=== PATIENT | male | born 1950 | race Caucasian/White ===

== ENCOUNTER 2019-05-28 11:44 | Day surgery (SDC) | payer OTHER ==
[~2019-05-28 11:44] MED LIST: Buffered Lidocaine 1% SYRIN* 1 ML/SYRINGE INTRADERM ONE
[2019-05-28] MEDS ORDERED: Midazolam* 1 MG/ML 2 ML VIAL (2 MG) ONE ×2 (12:34→12:56)
[2019-05-28] MEDS ORDERED: Neomycin/Polymy/Dex OPHTH.OIN* 3.5 GM ONE (13:40)
[2019-05-28] MEDS ORDERED: Cyclopentolate 1% OPTH.SOL* 2 ML BTL ONE (13:40)
[2019-05-28] MEDS ORDERED: Ketorolac 0.5% OPHTH (NF) 0.5 % 5 ML BTL ONE (13:40)
[2019-05-28] MEDS ORDERED: Tetracaine 0.5% OPTH.SOL 4 ML* 1 DROP BTL ONE (13:40)
[2019-05-28] MEDS ORDERED: Phenylephrine OPHTH SOL 2.5%* 2 ML ONE (13:40)
[2019-05-28] MEDS ORDERED: Lidocaine 1% MPF ** 5 ML VIAL ONE (13:40)
[2019-05-28] MEDS ORDERED: Tropicamide 1% OPTH.SOL* BTL ONE (13:40)
[2019-05-28 13:58] VITALS: BP 113/75
--- NOTE | 2019-05-28 20:59 | OP ---
DATE OF OPERATION: 05/28/19 [facility] DATE OF : 54 SURGEON: Dr. Barron Manning. VENEER REDRIER: None. ANESTHESIA: Topical with intravenous sedation. PRE-OP DIAGNOSIS: Cataract with some astigmatism, status post LASIK, right eye. POST-OP DIAGNOSIS: Cataract with some astigmatism, status post LASIK, right eye. OPERATIVE PROCEDURE: Phacoemulsification and cataract extraction with posterior chamber intraocular lens implant, right eye. COMPLICATIONS: None. BLOOD LOSS: None. DESCRIPTION OF PROCEDURE: The patient was brought to the operating room and received intravenous sedation. A drop of Tetracaine was placed in his right eye. The patient was prepped and draped in the usual sterile fashion for ophthalmic surgery and attention was directed to the right eye where a speculum was placed. A paracentesis was created at the 11 o'clock position peripheral to the prior LASIK scar. 0.1 cc of 1% preservative-free lidocaine was injected into the anterior chamber followed by DisCoVisc. The eye was digitally stabilized while a 2.75 mm keratome was used to create a triplanar clear corneal incision at the 9 o'clock position. Care was also taken to remain peripheral to the LASIK scar. A continuous curvilinear capsulorrhexis was created with a cystotome and Utrata forceps. BSS on a cannula was used to hydrodissect the lens from the capsule. Phacoemulsification was performed in a [id number]-[id number] technique. The capsular bag was polished. The eye was inflated with Provisc. Intraocular pressure was measured. The surface of the eye was lubricated. The ORA device was employed. Several measurements were taken. The consensus pointing to the patient not needing a toric lens. An AU00T0 20-diopter lens was selected. The lens was loaded and implanted in the capsular bag. Irrigation and aspiration were performed, removed viscoelastic from the eye. BSS on a cannula was used to hydrate the corneal stroma and seal the wound. At the end of the case, the pupil was round. The lens was centered and stable. The eye pressure appeared normal and the wound was watertight. The speculum was gently removed. Maxitrol was placed on the surface of the eye. The eye was closed, patched and shielded and the patient was sent to the recovery room in stable condition with postoperative instructions and followup appointment given. [id number]/[facility] #: [id number] ALICIA
== END 2019-05-28 13:43 | disposition home or self-care (01) ==
LOC: OREAST 11:44
PROVIDERS: ATTEND Ophthalmology
DX: H25.11 Age-related nuclear cataract, right eye (principal); H52.201 Unspecified astigmatism, right eye; I10 Essential (primary) hypertension; R00.2 Palpitations; G47.33 Obstructive sleep apnea (adult) (pediatric); M25.512 Pain in left shoulder; Z98.890 Other specified postprocedural states; Z87.442 Personal history of urinary calculi
CPT/HCPCS: A9270-GY; J2250; V2632